=== PATIENT | female | born 1975 ===

== ENCOUNTER 2024-12-13 05:00 | Day surgery (SDC) | payer OTHER ==
[2024-11-25 09:53] LABS: PH,URINE 6.5 (5.0-8.0); URINE APPEARANCE Clear; URINE BILIRRUBIN Negative (NEGATIVE); URINE BLOOD Negative; URINE COLOR Yellow; URINE GLUCOSE Negative (NEGATIVE); URINE KETONE Trace (NEGATIVE); URINE LEUKOCYTE Trace; URINE NITRATE Negative; URINE PROTEIN Trace (NEGATIVE); URINE UROBILINOGEN 0.2 E.U./dl
[2024-11-25 09:57] LABS: HEMATOCRIT 39.2 % (36.0-45.00); HEMOGLOBIN 13.3 g/dL (12.0-15.00); MEAN CELL VOLUME 90.2 fL (80.00-100.00); MEAN CORPUSCULAR HEMOGLOBIN 30.6 pg (27.00-32.0); MEAN CORPUSCULAR HGB CONC 33.9 g/dl (32.0-36.0); PLATELET COUNT 239 K/uL (150-450); RED BLOOD COUNT 4.34 M/uL (4.00-6.00); RED CELL DISTRIBUTION WIDTH 14.1 % (11.5-14.5)
[2024-11-25 09:58] LABS: URINE BACTERIA 3086.7 uL (0.0-1933); URINE EPITHELIAL CELLS 44.9 uL (0.0-38.8); URINE RBC 2.9 uL (0.0-20.8); URINE WBC 20.4 uL (0.0-23.2)
[2024-11-25 10:07] LABS: INR 1.09; PARTIAL THROMBOPLASTIN TIME 25.2 SECONDS (22.0-34.0); PROTHROMBIN TIME 11.8 SECONDS (9.0-11.5)
[2024-11-25 10:24] LABS: URINE CAST 0.14 uL (0.0-1.40)
[2024-11-25 10:43] LABS: ALBUMIN 4.4 gm/dL (3.4-5.0); BILIRUBIN TOTAL 0.53 mg/dL (0.3-1.2); CALCIUM 9.6 mg/dL (8.5-10.1); CREATININE SERUM 0.94 mg/dL (0.55-1.02); GFR 63.56; GLOBULINA 3.2 G/DL (2.4-3.5); POTASSIUM 3.7 mEq/L (3.5-5.1); TOTAL PROTEIN 7.6 gm/dL (6.4-8.2)
[~2024-12-13 05:00] MED LIST: AMBIEN10 MG PO; AMITRIPTYLINE H50 MG PO; CLARITIN10 M1 PO; COZAAR50 MG PO; LOREEV XR2 MG PO; NEURONTIN300 MG PO; PROTONIX20 MG PO; SYNTHROID50 MCG PO; TOPROL XL25 M1 PO; ZYLOPRIM100 M1 PO
[2024-12-13] MEDS ORDERED: DEXAMETHASONE SODIUM PHOSPHATE 4 MG/ML VIAL ONE (10:44)
[2024-12-13] MEDS ORDERED: CIPROFLOXACIN HCL 0.175 MG/DR DROPS OTIC ONE (11:30)
[2024-12-13] MEDS ORDERED: MEPERIDINE HCL 25 MG/ML AMPUL IV ONE (13:40)
[2024-12-13] MEDS ORDERED: ENALAPRILAT DIHYDRATE 1.25 MG/ML VIAL IV ONE (13:45)
== END 2024-12-13 15:40 | disposition home or self-care (01) ==
LOC: CIR.AMB 05:00
PROVIDERS: ATTEND Otolaryngology
DX: H65.23 Chronic serous otitis media, bilateral (principal); H69.83 Other specified disorders of Eustachian tube, bilateral